=== PATIENT | male | born 1980 | race Caucasian/White ===

== ENCOUNTER 2020-02-10 08:12 | Outpatient (CLI) | payer SELFPAY ==
--- NOTE | 2020-02-10 08:17 | USCV_ITS ---
Garfield Maradiaga Age: 39 Gender: M : 1980 Exam Date: 02/10/2020 08:31 Ordering Phys: Alex Naylor PA-C XX Technologist: Rox Velez Exam Location: [facility] – [place] Indication: TACHY BP: / HR: 77 Rhythm: Sinus Technical Quality: Very technically difficult study MEASUREMENTS (Male / Female) Normal Values 2D ECHO LV Diastolic Diameter PLAX 4.4 cm 4.2 - 5.9 / 3.9 - 5.3 cm LV Systolic Diameter PLAX 3.9 cm LV Chamber Size 3.4 cm IVS Diastolic Thickness 1.9 cm 0.6 - 1.0 / 0.6 - 0.9 cm IVS Systolic Thickness 1.7 cm LVPW Diastolic Thickness 1.6 cm 0.6 - 1.0 / 0.6 - 0.9 cm LVPW Systolic Thickness 1.8 cm RV Chamber Size 2.8 cm LVOT Diameter 2.1 cm LV Ejection Fraction 2D Teich 26.0 % LV Ejection Fraction MOD 2C 22.6 % LV Ejection Fraction 2C AL 21.2 % LA Diameter 3.6 cm LA Width 3.5 cm LA Height 3.9 cm RA Width 3.6 cm RA Height 3.9 cm Aorta at Sinotubular Diameter 3.9 cm DOPPLER AV Peak Velocity 115.0 cm/s LVOT Peak Velocity 83.0 cm/s AV Area Cont Eq vti 2.8 cm squared AV Area Cont Eq pk 2.5 cm squared MV Area PHT 3.5 cm squared Mitral E to A Ratio 1.2 MV E' Velocity 10.0 cm/s Mitral E to MV E' Ratio 7.3 Mitral E to LV E' Lateral Ratio 5.9 Mitral E to LV E' Septal Ratio 10.0 TR Peak Velocity 231.6 cm/s TR Peak Gradient 21.5 mmHg TR Mean Velocity 187.2 cm/s TR Mean Gradient 14.3 mmHg TR Velocity Time Integral 56.2 cm TV Peak E Velocity 56.0 cm/s Right Atrial Pressure 3.0 mmHg Pulmonary Artery Systolic Pressu 24.5 mmHg PV Peak Velocity 64.0 cm/s RV Acceleration Time 0.3 s RV Ejection Time 0.1 s RV AcT/ET 2.1 FINDINGS Left Ventricle Normal left ventricular size and systolic function, EF 55 %. No regional wall motion abnormalities. Right Ventricle Right Atrium Normal right atrial size. Left Atrium Normal left atrial size. Mitral Valve No gross abnormalities noted Aortic Valve No gross abnormalities noted. Tricuspid Valve No gross abnormalities noted Pulmonic Valve Pulmonic valve not well visualized. Pericardium No pericardial effusion. Aorta Normal aortic annulus size. CONCLUSIONS Normal left ventricular size and systolic function, EF 55 %. No regional wall motion abnormalities. Normal cardiac chamber sizes No significant stenotic or regurgitant lesions, based on the color flow Doppler examination There is no pericardial effusion. Technically difficult study because of the poor parasternal window Dr Guevara Sarabia MD FACC (Electronically Signed) Final Date: 10 February 2020 13:54 S
== END 2020-02-10 08:13 | disposition home or self-care (01) ==
LOC: RAD 08:14
PROVIDERS: Visit Provider Physician Assistant Medical
DX: R00.0 Tachycardia, unspecified (principal); R07.9 Chest pain, unspecified; I10 Essential (primary) hypertension
CPT/HCPCS: 93306